=== PATIENT | male | born 1980 | race Caucasian/White ===

== ENCOUNTER 2023-01-26 11:32 | Outpatient (AMB) | payer OTHER, SELFPAY ==
[2023-01-26 13:38] VITALS: BP 128/70; PULSE 74; TEMP 36.6; O2SAT 98
--- NOTE | 2023-01-26 13:38 | AM.OFFWIN_ITS ---
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 Patient is reporting redness in the right eye since yesterday. Does not wear contact lenses. No tearing or itching. Physical Exam Vital Signs: Last Vital Signs Temp 97.8 F 01/26/23 13:38 Pulse 74 01/26/23 13:38 BP 128/70 01/26/23 13:38 Pulse Ox 98 01/26/23 13:38 Oxygen Delivery Method Room Air 01/26/23 13:38 Eyes Other: Right eye: Subconjunctival hemorrhage on the nasal side. Assessment & Plan Assessment & Plan (1) Subconjunctival hemorrhage: Code(s): H11.30 - Conjunctival hemorrhage, unspecified eye Plan Etiology explained to patient. Advised us of allergy drops. Medications: New olopatadine 0.2% (Pataday Once Daily Relief) 1 drp ophthalmic (eye) BEDTIME 2.5 mL 0RF Coding Level of Care Code Est Pt Level 3 (24173) Diagnoses Subconjunctival hemorrhage H11.30
== END 2023-01-26 14:11 | disposition home or self-care (01) ==
PROVIDERS: PCP Internal Medicine; Visit Provider Internal Medicine
DX: H11.30 Conjunctival hemorrhage, unspecified eye (principal)
CPT/HCPCS: 99213